=== PATIENT | female | born 1970 | race Caucasian/White ===

== ENCOUNTER 2022-12-07 20:45 | Inpatient (IN) | payer BC ==
[~2022-12-07] VITALS: Ht 180.3 cm; Wt 123.0 kg
[2022-12-07 21:36] LABS: ALANINE AMINOTRANSFERASE 29 U/L (12-78); ALBUMIN 2.7 G/DL (3.4-5.0); ALBUMIN/GLOBULIN RATIO 0.7 (1.1-1.5); ALKALINE PHOSPHATASE 336 IU/L (46-116); ANION GAP 6 (8-16); ASPARTATE AMINO TRANSFERASE 52 U/L (10-37); BASOPHILS % (AUTO) 0.3 % (0-1); BILIRUBIN,TOTAL 2.4 MG/DL (0.1-1.0); BLOOD UREA NITROGEN 2 MG/DL (7-18); BUN/CREATININE RATIO 2.6 (10.0-20.0); CALCIUM 8.5 MG/DL (8.5-10.1); CHLORIDE 99 MMOL/L (99-107); CREATININE 0.78 MG/DL (0.40-0.90); EOSINOPHILS # (AUTO) 0.1 X10'3 (0-0.9); EOSINOPHILS % (AUTO) 1.2 % (0-6); GLUCOSE 104 MG/DL (70-104); LYMPHOCYTES # (AUTO) 1.3 X10'3 (1.1-4.8); LYMPHOCYTES % (AUTO) 17.7 % (21-51); MEAN CORPUSCULAR HEMOGLOBIN 22.1 PG (27.0-31.0); MEAN CORPUSCULAR HGB CONC 29.2 g/dL (33.0-36.5); MEAN CORPUSCULAR VOLUME 75.8 FL (78-98); MEAN PLATELET VOLUME 7.5 FL (7.4-10.4); MONOCYTES # (AUTO) 0.5 X10'3 (0-0.9); MONOCYTES % (AUTO) 6.6 % (2-12); NEUTROPHILS # (AUTO) 5.3 X10'3 (1.8-7.7); NEUTROPHILS % (AUTO) 74.2 % (42-75); PLATELET COUNT 158 X10'3 (140-440); RED BLOOD COUNT 2.49 X10'6 (4.20-5.60); RED CELL DISTRIBUTION WIDTH 21.1 % (11.5-14.5); SODIUM 131 MMOL/L (135-145); TOTAL CARBON DIOXIDE 26.2 MMOL/L (24-32); TOTAL PROTEIN 6.7 G/DL (6.4-8.2); WHITE BLOOD COUNT 7.1 X10'3 (4.5-11.0); eCRCL 94 ML/MIN; eGFR 78 ML/MIN
[2022-12-07 21:41] LABS: LIPASE 43 U/L (16-77)
[2022-12-07 21:44] LABS: HEMATOCRIT 18.9 % (35.0-45.0); HEMOGLOBIN 5.5 g/dl (12.0-16.0); POTASSIUM 2.9 MMOL/L (3.5-5.1)
[2022-12-07] MEDS ORDERED: pantoprazole 40mg IV 80 MG in normal saline 100ml IV soln 100 ML IV ONE (21:45)
[2022-12-07 22:10] LABS: APTT 26 SECONDS (22-32); INR 1.1 INR
[2022-12-07 22:14] LABS: ANISOCYTOSIS 3+; HYPOCHROMASIA 2+; MICROCYTOSIS 1+; PLATELET ESTIMATE NORMAL; POLYCHROMASIA 1+
[2022-12-07 22:15] LABS: ELLIPTOCYTES FEW; STOMATOCYTES 1+
[2022-12-07] MEDS: diatr meglu/diatrizoate 30ml oral sol.-(3 dose) bottle PO SCH ×3 (22:25→23:55)
[2022-12-07] MEDS ORDERED: LORazepam 2 mg/ml vial IV ONE (22:25)
[2022-12-07] MEDS ORDERED: IOHEXOL 12MG/ML oral solution 500 ML BOTTLE PO ONE (22:25)
[2022-12-07 22:38] LABS: ETHANOL < 10 MG/DL (<10)
[2022-12-07] MEDS: pantoprazole 40MG/NS 100ML BAG 100 ML IV SCH (22:48)
[2022-12-07] MEDS: morphine 2 MG/ML inj. syringe IV PRN (22:55)
[2022-12-07 22:58] LABS: ABSOLUTE RETICS # 109500 /CUMM (23000-93000); RETICULOCYTE % (AUTO) 4.4 % (0.5-1.5)
[2022-12-07] MEDS ORDERED: iohexol 300mg/ml 100ml inj. ONE (23:07)
[2022-12-07 23:26] LABS: URINE HCG NEGATIVE (NEG)
[2022-12-07 23:26] LABS: OCCULT BLOOD STOOL NEGATIVE (Neg)
[2022-12-07 23:37] VITALS: BP 107/58; PULSE 76; RESP 20; TEMP 97.9
[2022-12-07 23:42] LABS: COLOR,URINE ORANGE (Yellow); UA COLLECTION TYPE VOIDED
[2022-12-07 23:47] VITALS: BP 114/65; PULSE 71; RESP 15; TEMP 97.8
[2022-12-07 23:47] LABS: BACTERIA,URINE 3+ /HPF (Neg); SQUAMOUS EPITHELIAL CELL,UR FEW /LPF (FEW); WBC,URINE 50-100 /HPF (0-4)
[2022-12-07 23:48] LABS: FINE GRANULAR CAST 0-3 /LPF (NEGATIVE); MUCUS STRANDS MODERATE /LPF (Neg); TRANSITIONAL EPI CELLS,URINE FEW /HPF
[2022-12-07 23:55] VITALS: BP 103/41; PULSE 75; RESP 18; TEMP 97.9
[2022-12-08] VITALS (14 sets, daily range): BP systolic 104–128; BP diastolic 43–115; PULSE 67–79; RESP 12–21; TEMP 97.7–99.4; O2SAT 97
[2022-12-08] MEDS ORDERED: piperacillin/tazo 3.375gm/50ml 50 ML IV ONE (00:35)
[2022-12-08] MEDS ORDERED: CefTRIAXone 2gm/D5W 50ml BAG 50 ML IV ONE (00:35)
[2022-12-08] MEDS: pantoprazole 40MG/NS 100ML BAG 100 ML IV SCH (00:54)
[2022-12-08] MEDS: normal saline 1000ml 1,000 ML IV SCH ×2 (01:00→21:05)
[2022-12-08] MEDS ORDERED: acetaminophen 325mg tablet PO PRN (01:00)
[2022-12-08] MEDS ORDERED: potassium Cl 20 mEq SR tablet PO PRN (01:00)
[2022-12-08] MEDS ORDERED: potassium Cl 40MEQ/1/2NS 520ml 520 ML IV PRN (01:00)
[2022-12-08] MEDS ORDERED: magnesium Cl slow-release 64mg tablet PO PRN (01:00)
[2022-12-08] MEDS ORDERED: magnesium 4gm in 100ml NS 100 ML IV PRN (01:00)
[2022-12-08] MEDS ORDERED: magnesium 2GM in 50ml NS 50 ML IV PRN (01:00)
[2022-12-08] MEDS: morphine 2 MG/ML inj. syringe IV PRN ×9 (01:04→21:25)
--- NOTE | 2022-12-08 01:04 | NUR ---
pt requested pain medication. per dr ramos, give 2mg iv morphine.
[2022-12-08] MEDS: potassium Cl 20 mEq SR tablet PO PRN ×3 (03:28→22:34)
[2022-12-08] MEDS: ondansetron/PF 4mg/2ml inj IV PRN (07:21)
[2022-12-08] MEDS: pantoprazole 40mg Tablet.DR PO SCH (07:23)
[2022-12-08] MEDS ORDERED: heparin, porcine 5000 units/ml vial SQ SCH (08:00)
[2022-12-08 09:34] LABS: % IRON SATURATION 10 % (11-46); IRON 43 UG/DL (49-151); TOTAL IRON BINDING CAPACITY 426 UG/DL (259-388)
[2022-12-08] MEDS ORDERED: NO HOME MEDS (10:52)
[2022-12-08 12:09] LABS: BASOPHILS % (AUTO) 0.2 % (0-1); EOSINOPHILS # (AUTO) 0.1 X10'3 (0-0.9); EOSINOPHILS % (AUTO) 1.3 % (0-6); HEMATOCRIT 23.2 % (35.0-45.0); LYMPHOCYTES # (AUTO) 0.9 X10'3 (1.1-4.8); LYMPHOCYTES % (AUTO) 12.8 % (21-51); MEAN CORPUSCULAR HEMOGLOBIN 23.4 PG (27.0-31.0); MEAN CORPUSCULAR HGB CONC 29.6 g/dL (33.0-36.5); MEAN CORPUSCULAR VOLUME 78.9 FL (78-98); MEAN PLATELET VOLUME 7.8 FL (7.4-10.4); MONOCYTES # (AUTO) 0.4 X10'3 (0-0.9); MONOCYTES % (AUTO) 6.1 % (2-12); NEUTROPHILS # (AUTO) 5.5 X10'3 (1.8-7.7); NEUTROPHILS % (AUTO) 79.6 % (42-75); PLATELET COUNT 156 X10'3 (140-440); RED BLOOD COUNT 2.95 X10'6 (4.20-5.60); WHITE BLOOD COUNT 6.9 X10'3 (4.5-11.0)
[2022-12-08 12:23] LABS: HEMOGLOBIN 6.9 g/dl (12.0-16.0)
[2022-12-08 13:27] LABS: ANISOCYTOSIS 2+; MICROCYTOSIS 1+; PLATELET ESTIMATE NORMAL
[2022-12-08 13:28] LABS: STOMATOCYTES 1+
[2022-12-08] MEDS ORDERED: ACET-1131 PO (16:42)
[2022-12-08] MEDS ORDERED: ACET-864 PO (16:42)
[2022-12-08] MEDS ORDERED: IBUP1TAB11 PO (16:43)
[2022-12-08] MEDS ORDERED: [UNRECOGNIZED DRUG - REMARK] PO (16:46)
[2022-12-08] MEDS ORDERED: OTC LAXATIVE PO (16:47)
--- NOTE | 2022-12-08 17:00 | NUR ---
pt was moved from ER room 9 to 4011 on hospital bed, received report from Wilson ALVARADO. Pt is receiving 3rd unit of PRBC. IV to bilateral ACs are patent and clear, no s/s of infiltration. Pt c/o mid abd pain 9-10, +nausea, no vomiting, resp even and unlabored, skin p/w/d.
--- NOTE | 2022-12-08 17:42 | NUR ---
unit of PRBC has finished infusing
--- NOTE | 2022-12-08 18:17 | NUR ---
report given to Paty Ponce RN
--- NOTE | 2022-12-08 18:20 | NUR ---
Patient in room ORTHO 4011. I have received report from JENNY MANZANO and had the opportunity to ask questions and assume patient care.
[2022-12-08] MEDS: FERROUS SULFATE 142 MG TABLET.ER (45mg elemental) PO SCH (21:41)
[2022-12-08 23:23] LABS: HEMATOCRIT 26.5 % (35.0-45.0); HEMOGLOBIN 8.1 g/dl (12.0-16.0); MEAN CORPUSCULAR HEMOGLOBIN 24.5 PG (27.0-31.0); MEAN CORPUSCULAR HGB CONC 30.7 g/dL (33.0-36.5); MEAN CORPUSCULAR VOLUME 79.7 FL (78-98); MEAN PLATELET VOLUME 7.5 FL (7.4-10.4); PLATELET COUNT 162 X10'3 (140-440); RED BLOOD COUNT 3.32 X10'6 (4.20-5.60); RED CELL DISTRIBUTION WIDTH 20.6 % (11.5-14.5); WHITE BLOOD COUNT 7.5 X10'3 (4.5-11.0)
[2022-12-09] MEDS: CefTRIAXone 2gm/D5W 50ml BAG 50 ML IV SCH ×2 (00:12→23:54)
[2022-12-09] MEDS: morphine 2 MG/ML inj. syringe IV PRN ×5 (02:02→14:36)
[2022-12-09 06:00] VITALS: BP 134/74; PULSE 70; RESP 16; TEMP 97.8; O2SAT 95
[2022-12-09 06:11] LABS: BASOPHILS % (AUTO) 0.3 % (0-1); EOSINOPHILS # (AUTO) 0.1 X10'3 (0-0.9); EOSINOPHILS % (AUTO) 1.1 % (0-6); HEMATOCRIT 26.5 % (35.0-45.0); LYMPHOCYTES # (AUTO) 0.6 X10'3 (1.1-4.8); LYMPHOCYTES % (AUTO) 6.8 % (21-51); MEAN CORPUSCULAR HEMOGLOBIN 24.6 PG (27.0-31.0); MEAN CORPUSCULAR HGB CONC 30.2 g/dL (33.0-36.5); MEAN CORPUSCULAR VOLUME 81.5 FL (78-98); MEAN PLATELET VOLUME 7.8 FL (7.4-10.4); MONOCYTES # (AUTO) 0.8 X10'3 (0-0.9); MONOCYTES % (AUTO) 9.9 % (2-12); NEUTROPHILS # (AUTO) 6.8 X10'3 (1.8-7.7); NEUTROPHILS % (AUTO) 81.9 % (42-75); PLATELET COUNT 170 X10'3 (140-440); RED BLOOD COUNT 3.26 X10'6 (4.20-5.60); RED CELL DISTRIBUTION WIDTH 20.4 % (11.5-14.5); WHITE BLOOD COUNT 8.3 X10'3 (4.5-11.0)
[2022-12-09 06:27] LABS: ALANINE AMINOTRANSFERASE 23 U/L (12-78); ALBUMIN 2.6 G/DL (3.4-5.0); ALBUMIN/GLOBULIN RATIO 0.6 (1.1-1.5); ALKALINE PHOSPHATASE 280 IU/L (46-116); ANION GAP 7 (8-16); ASPARTATE AMINO TRANSFERASE 40 U/L (10-37); BILIRUBIN,TOTAL 2.5 MG/DL (0.1-1.0); BLOOD UREA NITROGEN 2 MG/DL (7-18); BUN/CREATININE RATIO 2.8 (10.0-20.0); CALCIUM 8.5 MG/DL (8.5-10.1); CHLORIDE 103 MMOL/L (99-107); CREATININE 0.72 MG/DL (0.40-0.90); GLUCOSE 100 MG/DL (70-104); POTASSIUM 4.3 MMOL/L (3.5-5.1); SODIUM 134 MMOL/L (135-145); TOTAL CARBON DIOXIDE 24.5 MMOL/L (24-32); TOTAL PROTEIN 6.8 G/DL (6.4-8.2); eCRCL 102 ML/MIN; eGFR 85 ML/MIN
--- NOTE | 2022-12-09 06:38 | NUR ---
Problems reprioritized. Patient report given, questions answered & plan of care reviewed with JENNY PICKARD.
--- NOTE | 2022-12-09 06:50 | NUR ---
Patient in room ORTHO 4011. I have received report from Zahida ALVARADO and had the opportunity to ask questions and assume patient care.
[2022-12-09 07:02] LABS: ANISOCYTOSIS 3+; HYPOCHROMASIA 1+; MICROCYTOSIS 1+; PLATELET ESTIMATE NORMAL
[2022-12-09 07:03] LABS: POIKILOCYTOSIS FEW; STOMATOCYTES 1+
[2022-12-09 07:25] VITALS: BP 134/74; PULSE 70; RESP 16; TEMP 97.8; O2SAT 95
[2022-12-09] MEDS: pantoprazole 40mg Tablet.DR PO SCH (07:37)
[2022-12-09] MEDS: FERROUS SULFATE 142 MG TABLET.ER (45mg elemental) PO SCH ×2 (08:00→20:00)
[2022-12-09 11:00] VITALS: BP 123/47; PULSE 72; RESP 22; TEMP 97.6; O2SAT 95
[2022-12-09] MEDS ORDERED: sincalide inj 2.5 MCG in normal saline 100ml IV soln 100 ML IV ONE (12:35)
[2022-12-09] MEDS: HYDROmorphone 1 mg/ml syringe IV PRN ×2 (17:34→21:50)
[2022-12-09] MEDS: ondansetron/PF 4mg/2ml inj IV PRN (17:34)
[2022-12-09] MEDS: normal saline 1000ml 1,000 ML IV SCH (17:42)
--- NOTE | 2022-12-09 18:48 | NUR ---
Patient requesting pain relief q2hrs. dr story paged, meds addressed. Vomited 200mls brownish emesis. Zofran given. will continue to monitor
[2022-12-09 19:00] VITALS: BP 123/60; PULSE 92; RESP 19; TEMP 97.7; O2SAT 99
[2022-12-09 22:00] VITALS: BP 138/66; PULSE 112; RESP 18; TEMP 98; O2SAT 93
[2022-12-10] VITALS (12 sets, daily range): BP systolic 114–168; BP diastolic 59–73; PULSE 78–101; RESP 12–20; TEMP 98.4; O2SAT 93–100
--- NOTE | 2022-12-10 00:50 | NUR ---
pATIENT SEEN BY dr Ceja, AWARE OF BROWNISH EMESIS. Stated to make person NPO and that she would be operated on in am. 12/10/22. Patient resting at this time. No more episodes of vomiting
[2022-12-10] MEDS: ondansetron/PF 4mg/2ml inj IV PRN (05:13)
--- NOTE | 2022-12-10 05:17 | NUR ---
vomited 100mls brownish emesis given zofran, will continue to monitor
[2022-12-10 05:20] LABS: BASOPHILS % (AUTO) 0.3 % (0-1); EOSINOPHILS % (AUTO) 0.1 % (0-6); HEMATOCRIT 27.1 % (35.0-45.0); HEMOGLOBIN 8.2 g/dl (12.0-16.0); LYMPHOCYTES # (AUTO) 0.4 X10'3 (1.1-4.8); LYMPHOCYTES % (AUTO) 4.9 % (21-51); MEAN CORPUSCULAR HEMOGLOBIN 24.6 PG (27.0-31.0); MEAN CORPUSCULAR HGB CONC 30.2 g/dL (33.0-36.5); MEAN CORPUSCULAR VOLUME 81.3 FL (78-98); MEAN PLATELET VOLUME 7.4 FL (7.4-10.4); MONOCYTES # (AUTO) 1.1 X10'3 (0-0.9); MONOCYTES % (AUTO) 12.5 % (2-12); NEUTROPHILS # (AUTO) 7.4 X10'3 (1.8-7.7); NEUTROPHILS % (AUTO) 82.2 % (42-75); PLATELET COUNT 183 X10'3 (140-440); RED BLOOD COUNT 3.34 X10'6 (4.20-5.60); RED CELL DISTRIBUTION WIDTH 20.6 % (11.5-14.5)
[2022-12-10 05:33] LABS: ALANINE AMINOTRANSFERASE 30 U/L (12-78); ALBUMIN 2.8 G/DL (3.4-5.0); ALBUMIN/GLOBULIN RATIO 0.6 (1.1-1.5); ALKALINE PHOSPHATASE 300 IU/L (46-116); ANION GAP 8 (8-16); ASPARTATE AMINO TRANSFERASE 78 U/L (10-37); BILIRUBIN,TOTAL 3.6 MG/DL (0.1-1.0); BLOOD UREA NITROGEN 2 MG/DL (7-18); BUN/CREATININE RATIO 2.7 (10.0-20.0); CALCIUM 8.8 MG/DL (8.5-10.1); CHLORIDE 100 MMOL/L (99-107); CREATININE 0.73 MG/DL (0.40-0.90); GLUCOSE 140 MG/DL (70-104); POTASSIUM 3.5 MMOL/L (3.5-5.1); SODIUM 134 MMOL/L (135-145); TOTAL CARBON DIOXIDE 26.1 MMOL/L (24-32); TOTAL PROTEIN 7.2 G/DL (6.4-8.2); eCRCL 101 ML/MIN; eGFR 84 ML/MIN
--- NOTE | 2022-12-10 06:30 | NUR ---
Problems reprioritized. Patient report given, questions answered & plan of care reviewed with Keke ALVARADO.
[2022-12-10] MEDS: pantoprazole 40mg Tablet.DR PO SCH (07:30)
[2022-12-10] MEDS: FERROUS SULFATE 142 MG TABLET.ER (45mg elemental) PO SCH ×2 (08:00→22:58)
[2022-12-10 09:27] LABS: ANISOCYTOSIS 3+; HYPOCHROMASIA 1+; PLATELET ESTIMATE NORMAL; POLYCHROMASIA FEW; STOMATOCYTES 1+; TEAR DROP CELLS 1+
[2022-12-10] MEDS: HYDROmorphone 1 mg/ml syringe IV PRN ×2 (10:12→13:40)
[2022-12-10] MEDS: normal saline 1000ml 1,000 ML IV SCH (13:00)
[2022-12-10] MEDS ORDERED: proCHLORperazine 10 MG/2 ml inj IV PRN (17:25)
[2022-12-10] MEDS ORDERED: hydrALAZINE 20mg/ml inj. IV PRN (17:25)
[2022-12-10] MEDS ORDERED: ringers solution, lacted 1,000 ML IV SCH (17:25)
[2022-12-10] MEDS ORDERED: meperidine/PF 25mg/ml syringe IV PRN ×3 (17:25)
[2022-12-10] MEDS ORDERED: labetalol 20mg/4ml (5mg/ml) syringe IV PRN (17:25)
[2022-12-10] MEDS ORDERED: acetaminophen 1,000mg/100ml IV 100 ML IV PRN (17:25)
[2022-12-10] MEDS ORDERED: morphine 2 MG/ML inj. syringe IV PRN ×2 (17:25→21:00)
[2022-12-10] MEDS ORDERED: ondansetron/PF 4mg/2ml inj IV PRN ×2 (17:25→21:00)
[2022-12-10] MEDS ORDERED: morphine 4 MG/ML inj SYRINge IV PRN ×2 (17:25→21:00)
[2022-12-10] MEDS ORDERED: midazolam 1 mg/ML 2ml injection ONE (17:34)
[2022-12-10] MEDS ORDERED: fentaNYL /PF 50mcg/ml 5ml ampule ONE (17:35)
[2022-12-10] MEDS ORDERED: ceFAZolin 1000mg inj ONE ×3 (18:04)
[2022-12-10] MEDS ORDERED: rocuronium 10mg/ml inj IV ONE ×2 (18:04→18:18)
[2022-12-10] MEDS ORDERED: LIDOcaine 2% (20mg/ml) 5ml vial ONE (18:04)
[2022-12-10] MEDS ORDERED: propofol inj 20 ML IV ONE (18:04)
[2022-12-10] MEDS ORDERED: ondansetron/PF 4mg/2ml inj ONE (18:19)
[2022-12-10] MEDS ORDERED: dexamethasone sod phosphate 4mg/ml inj. ONE (18:19)
[2022-12-10] MEDS ORDERED: fentaNYL/PF 50MCG/1 ML 2ML syringe IV PRN (19:55)
[2022-12-10] MEDS ORDERED: midazolam 1 mg/ML 2ml injection IV PRN (19:55)
[2022-12-10] MEDS ORDERED: potassium Cl 20mEq in D5-NS 1,000 ML IV SCH (21:00)
[2022-12-10] MEDS ORDERED: metoclopramide 5 mg/ml inj IV PRN (21:00)
[2022-12-10] MEDS ORDERED: albuterol 2.5 MG/3 ML nebule NEB PRN (21:00)
--- NOTE | 2022-12-10 21:24 | NUR ---
Received from OR via ICU BED , accompanied by Anesthesiologist PRESLEY and report given by Anesthesiolgist. PATIENT WITH TRIPLE LUMEN CENTRAL LINE IN PLACE TO LEFT NECK. INTUBATED AND IS APPROX 21 AT THE LIPS. SCDS ON. ART LINE IN LEFT WRIST WELL A 20G PIV IN RIGHT DORSUM OF THE HAND. PATIENTWITH ABDOMINAL BINDERS X2 AND ISLAND DRESSINGS THAT ARE CDI. LEXI DRAIN PRESENT TO LEFT ABDOMEN SEROSANGUENOUS DRAINAGE PRESENT. REINOSO CATHETER PRESENT WITH CLEAR YELLOW URINE PRESENT. Addendum: 12/10/22 at 2200 by Roxanne Ramírez RN Amended: Links added.
[2022-12-10] MEDS: propofol 1000mg/100ml bottle 100 ML IV SCH ×2 (21:36→22:53)
[2022-12-10 22:07] LABS: BASOPHILS % (AUTO) 0.4 % (0-1); EOSINOPHILS % (AUTO) 0 % (0-6); HEMATOCRIT 29.2 % (35.0-45.0); LYMPHOCYTES # (AUTO) 0.3 X10'3 (1.1-4.8); LYMPHOCYTES % (AUTO) 4.1 % (21-51); MEAN CORPUSCULAR HEMOGLOBIN 25.6 PG (27.0-31.0); MEAN CORPUSCULAR HGB CONC 30.7 g/dL (33.0-36.5); MEAN CORPUSCULAR VOLUME 83.5 FL (78-98); MEAN PLATELET VOLUME 7.2 FL (7.4-10.4); MONOCYTES % (AUTO) 14.7 % (2-12); NEUTROPHILS # (AUTO) 5.7 X10'3 (1.8-7.7); NEUTROPHILS % (AUTO) 80.8 % (42-75); PLATELET COUNT 174 X10'3 (140-440); RED CELL DISTRIBUTION WIDTH 21.4 % (11.5-14.5); WHITE BLOOD COUNT 7.1 X10'3 (4.5-11.0)
--- NOTE | 2022-12-10 22:14 | NUR ---
CARE TURNED OVER TO RN AT BEDSIDE FOLLOWING BEDSIDE REPORT. JENNY PATIÑO CARING FOR PATIENT AT THIS TIME NOW AND HAS ASSUMED CARE. ALL LINES SECURE AND DRESSINGS HAVE ONLY SLIGHTLY CHANGED SINCE ARRIVAL FROM THE OR. ALL QUESTIONS ANSWERED AND CARE ASSUMED. VSS Addendum: 12/10/22 at 2217 by Roxanne Ramírez RN Amended: Links added.
[2022-12-10] MEDS: piperacillin/tazo 3.375gm/50ml 50 ML IV SCH (22:23)
--- NOTE | 2022-12-10 22:50 | NUR ---
2220 initiated care after report from candi - pt wildly undersedated and adjustments made for pt comfort with fent and prop
[2022-12-10 23:10] LABS: PLATELET ESTIMATE NORMAL
[2022-12-10 23:11] LABS: ANISOCYTOSIS 3+; ELLIPTOCYTES 1+
[2022-12-10 23:45] LABS: ABG BASE EXCESS -2.8 mmol/L (-2.0-2.0); ABG HCO3 21.9 mmol/L (22.0-26.0); ABG OXYGEN SATURATION 99.7 % (94-97); ABG PCO2 (T) 38.5 mmHg (32.0-45.0); ABG PH (T) 7.375 (7.350-7.450); ABG PO2 (T) 348.8 mmHg (75.0-100.0); FCOHb 1.2 % (0.0-3.9); FHHb 0.3 % (0.0-5.0); FO2Hb 98.5 % (94-97); MODE VENT - SIMV; PATIENT TEMPERATURE 37.5; RESPIRATORY RATE 12 b/min; TIDAL VOLUME 725 mL; TOTAL HEMOGLOBIN 10.1 G/dl (12.0-16.0)
[2022-12-11] VITALS (36 sets, daily range): BP systolic 88–138; BP diastolic 45–74; PULSE 74–125; RESP 12–21; O2SAT 80–100
[2022-12-11] MEDS ORDERED: cefoxitin sod inj 2,000 MG in normal saline 100ml IV soln 100 ML IV SCH ×2
[2022-12-11] MEDS ORDERED: ceFAZolin inj. 1,000 MG in dextrose 5%-water 50ml 50 ML IV SCH ×2
[2022-12-11] MEDS: propofol 1000mg/100ml bottle 100 ML IV SCH ×5 (01:31→14:11)
[2022-12-11 01:56] LABS: BASOPHILS % (AUTO) 0.1 % (0-1); EOSINOPHILS % (AUTO) 0 % (0-6); HEMATOCRIT 27.1 % (35.0-45.0); HEMOGLOBIN 8.4 g/dl (12.0-16.0); LYMPHOCYTES # (AUTO) 0.4 X10'3 (1.1-4.8); LYMPHOCYTES % (AUTO) 5.2 % (21-51); MEAN CORPUSCULAR HEMOGLOBIN 25.9 PG (27.0-31.0); MEAN CORPUSCULAR HGB CONC 30.9 g/dL (33.0-36.5); MEAN CORPUSCULAR VOLUME 83.8 FL (78-98); MEAN PLATELET VOLUME 7.8 FL (7.4-10.4); MONOCYTES # (AUTO) 0.9 X10'3 (0-0.9); MONOCYTES % (AUTO) 12.2 % (2-12); NEUTROPHILS # (AUTO) 6.3 X10'3 (1.8-7.7); NEUTROPHILS % (AUTO) 82.5 % (42-75); PLATELET COUNT 165 X10'3 (140-440); RED BLOOD COUNT 3.23 X10'6 (4.20-5.60); RED CELL DISTRIBUTION WIDTH 21.5 % (11.5-14.5); WHITE BLOOD COUNT 7.6 X10'3 (4.5-11.0)
[2022-12-11 02:01] LABS: ALANINE AMINOTRANSFERASE 25 U/L (12-78); ALBUMIN 1.9 G/DL (3.4-5.0); ALKALINE PHOSPHATASE 176 IU/L (46-116); ANION GAP 9 (8-16); ASPARTATE AMINO TRANSFERASE 78 U/L (10-37); BILIRUBIN,TOTAL 5.3 MG/DL (0.1-1.0); BLOOD UREA NITROGEN 2 MG/DL (7-18); BUN/CREATININE RATIO 3.1 (10.0-20.0); CALCIUM 7.6 MG/DL (8.5-10.1); CHLORIDE 104 MMOL/L (99-107); CREATININE 0.64 MG/DL (0.40-0.90); GLUCOSE 134 MG/DL (70-104); MAGNESIUM 1.8 MG/DL (1.5-2.4); POTASSIUM 3.2 MMOL/L (3.5-5.1); SODIUM 137 MMOL/L (135-145); TOTAL CARBON DIOXIDE 24.5 MMOL/L (24-32); eCRCL 115 ML/MIN; eGFR > 90 ML/MIN
[2022-12-11 02:04] LABS: ALBUMIN/GLOBULIN RATIO 0.6 (1.1-1.5); TRIGLYCERIDES 91 MG/DL (20-135)
[2022-12-11 02:53] LABS: ABG BASE EXCESS -2.2 mmol/L (-2.0-2.0); ABG HCO3 21.7 mmol/L (22.0-26.0); ABG OXYGEN SATURATION 96.6 % (94-97); ABG PCO2 (T) 33.6 mmHg (32.0-45.0); ABG PH (T) 7.428 (7.350-7.450); ABG PO2 (T) 79.2 mmHg (75.0-100.0); FCOHb 1.1 % (0.0-3.9); FHHb 3.4 % (0.0-5.0); FMetHb 0.3 % (0.0-1.5); FO2Hb 95.2 % (94-97); MODE VENT - SIMV; PATIENT TEMPERATURE 37.1; PEEP 5 cm H2O; RESPIRATORY RATE 12 b/min; TIDAL VOLUME 750 mL
[2022-12-11] MEDS: FENTANYL-0.9 % NACL/PF 100 ML IV PRN ×4 (03:24→18:48)
[2022-12-11] MEDS: piperacillin/tazo 3.375gm/50ml 50 ML IV SCH ×3 (05:27→22:16)
--- NOTE | 2022-12-11 06:55 | NUR ---
Patient in room ICU 2044. I have received report from Karen ALVARADO and had the opportunity to ask questions and assume patient care.
[2022-12-11] MEDS: FERROUS SULFATE 142 MG TABLET.ER (45mg elemental) PO SCH ×2 (06:56→19:21)
[2022-12-11] MEDS: pantoprazole 40mg Tablet.DR PO SCH (06:56)
[2022-12-11] MEDS: gabapentin 300mg capsule PO SCH ×2 (06:56→19:21)
--- NOTE | 2022-12-11 10:54 | NUR ---
called Dr. Wright updated on current status, asked what the plan is for today, he stated to keep her intubated for today, stated that it was a big surgery and that the area is fragile
[2022-12-11] MEDS: potassium Cl 20mEq in D5-NS 1,000 ML IV SCH ×3 (11:05→21:19)
[2022-12-11] MEDS: pantoprazole 40MG/NS 100ML BAG 100 ML IV SCH (11:23)
[2022-12-11] MEDS: heparin, porcine 5000 units/ml vial SQ SCH ×2 (11:23→16:08)
--- NOTE | 2022-12-11 14:44 | NUR ---
F/u 12/11: Per MD during CCR, plan is to wean off sedation and possibly extubate today therefore holding off on TF for now. Will continue to monitor closely and make recommendations as appropriate. Addendum: 12/11/22 at [address] Amended: Links added.
[2022-12-11] MEDS ORDERED: potassium Cl 20 mEq SR tablet PO PRN (16:25)
[2022-12-11] MEDS ORDERED: potassium Cl 40MEQ/1/2NS 520ml 520 ML IV PRN (16:25)
[2022-12-11] MEDS ORDERED: magnesium Cl slow-release 64mg tablet PO PRN (16:25)
[2022-12-11] MEDS ORDERED: midazolam 100mg in NS 100ml 100 ML IV PRN (16:25)
[2022-12-11] MEDS ORDERED: magnesium 4gm in 100ml NS 100 ML IV PRN (16:25)
[2022-12-11] MEDS ORDERED: magnesium 2GM in 50ml NS 50 ML IV PRN (16:25)
[2022-12-11] MEDS: mineral oil/petrolatum ophthal oint EACHEYE SCH (19:22)
--- NOTE | 2022-12-11 21:14 | NUR ---
dr chen in - aware of hr in the 120's and low UOP - ofirmev and albumin ordered
[2022-12-11] MEDS ORDERED: acetaminophen 1,000mg/100ml IV 100 ML IV PRN (21:15)
[2022-12-11] MEDS ORDERED: albumin (Human) 5% 250ml 250 ML IV ONE ×2 (21:15→21:16)
[2022-12-11] MEDS ORDERED: albumin (Human) 5% 250ml 500 ML IV ONE (21:16)
[2022-12-12] VITALS (32 sets, daily range): BP systolic 90–130; BP diastolic 47–79; PULSE 70–111; RESP 8–30; O2SAT 94–99
[2022-12-12] MEDS: heparin, porcine 5000 units/ml vial SQ SCH ×4 (00:44→23:49)
[2022-12-12] MEDS: mineral oil/petrolatum ophthal oint EACHEYE SCH ×3 (02:00→14:00)
[2022-12-12 02:09] LABS: ABG BASE EXCESS -2.5 mmol/L (-2.0-2.0); ABG HCO3 23.6 mmol/L (22.0-26.0); ABG OXYGEN SATURATION 97.1 % (94-97); ABG PCO2 (T) 46.5 mmHg (32.0-45.0); ABG PH (T) 7.322 (7.350-7.450); ABG PO2 (T) 91.3 mmHg (75.0-100.0); FCOHb 1.2 % (0.0-3.9); FHHb 2.9 % (0.0-5.0); FMetHb 0.3 % (0.0-1.5); FO2Hb 95.6 % (94-97); MODE ac/prvc; PATIENT TEMPERATURE 36.8; PEEP 5 cm H2O; RESPIRATORY RATE 16 b/min; TIDAL VOLUME 375 mL; TOTAL HEMOGLOBIN 8.4 G/dl (12.0-16.0)
[2022-12-12 02:36] LABS: BASOPHILS # (AUTO) 0.1 X10'3 (0-0.2); EOSINOPHILS # (AUTO) 0.1 X10'3 (0-0.9); EOSINOPHILS % (AUTO) 2.4 % (0-6); HEMATOCRIT 24.1 % (35.0-45.0); HEMOGLOBIN 7.3 g/dl (12.0-16.0); LYMPHOCYTES # (AUTO) 0.8 X10'3 (1.1-4.8); LYMPHOCYTES % (AUTO) 13.2 % (21-51); MEAN CORPUSCULAR HEMOGLOBIN 25.8 PG (27.0-31.0); MEAN CORPUSCULAR HGB CONC 30.2 g/dL (33.0-36.5); MEAN CORPUSCULAR VOLUME 85.5 FL (78-98); MEAN PLATELET VOLUME 7.7 FL (7.4-10.4); MONOCYTES # (AUTO) 0.8 X10'3 (0-0.9); MONOCYTES % (AUTO) 13.4 % (2-12); NEUTROPHILS # (AUTO) 4.2 X10'3 (1.8-7.7); PLATELET COUNT 169 X10'3 (140-440); RED BLOOD COUNT 2.83 X10'6 (4.20-5.60)
[2022-12-12 02:51] LABS: ALANINE AMINOTRANSFERASE 18 U/L (12-78); ALBUMIN 1.9 G/DL (3.4-5.0); ALBUMIN/GLOBULIN RATIO 0.6 (1.1-1.5); ALKALINE PHOSPHATASE 138 IU/L (46-116); ANION GAP 9 (8-16); ASPARTATE AMINO TRANSFERASE 39 U/L (10-37); BILIRUBIN,TOTAL 3.1 MG/DL (0.1-1.0); BLOOD UREA NITROGEN 4 MG/DL (7-18); BUN/CREATININE RATIO 4.8 (10.0-20.0); CALCIUM 7.7 MG/DL (8.5-10.1); CHLORIDE 107 MMOL/L (99-107); CREATININE 0.84 MG/DL (0.40-0.90); GLUCOSE 126 MG/DL (70-104); MAGNESIUM 1.9 MG/DL (1.5-2.4); POTASSIUM 3.3 MMOL/L (3.5-5.1); SODIUM 142 MMOL/L (135-145); TOTAL CARBON DIOXIDE 26.3 MMOL/L (24-32); TOTAL PROTEIN 5.1 G/DL (6.4-8.2); eCRCL 88 ML/MIN; eGFR 71 ML/MIN
--- NOTE | 2022-12-12 03:20 | NUR ---
abd dressing change done - cleansed with chg wipes, island dressing re-applied and abd binder replaced
[2022-12-12 03:54] LABS: ANISOCYTOSIS 3+; ELLIPTOCYTES FEW; PLATELET ESTIMATE NORMAL; STOMATOCYTES FEW
[2022-12-12 03:55] LABS: HYPOCHROMASIA 1+
[2022-12-12] MEDS: potassium Cl 20mEq in D5-NS 1,000 ML IV SCH ×3 (04:31→23:49)
[2022-12-12] MEDS: potassium Cl 40MEQ/270ML bag 270 ML IV PRN (04:32)
[2022-12-12] MEDS: FENTANYL-0.9 % NACL/PF 100 ML IV PRN ×2 (04:32)
[2022-12-12] MEDS: piperacillin/tazo 3.375gm/50ml 50 ML IV SCH ×3 (05:24→22:08)
[2022-12-12] MEDS: FERROUS SULFATE 142 MG TABLET.ER (45mg elemental) PO SCH ×2 (08:00→20:00)
[2022-12-12] MEDS: gabapentin 300mg capsule PO SCH ×2 (08:00→20:00)
[2022-12-12] MEDS: pantoprazole 40MG/NS 100ML BAG 100 ML IV SCH (08:02)
--- NOTE | 2022-12-12 09:22 | NUR ---
sedation vacation since 824 follows commands, nods yes to pain. rr 10, tv 64
[2022-12-12] MEDS: normal saline 1000ml 1,000 ML IV SCH ×2 (13:22→22:56)
[2022-12-12] MEDS: thiamine 100mg/ml 2ml inj. IV SCH ×2 (13:23→20:17)
[2022-12-12] MEDS ORDERED: HYDROmorphone 1 mg/ml syringe IV PRN (14:20)
[2022-12-12] MEDS: folic acid 1mg/0.2ml inj IV SCH (14:23)
--- NOTE | 2022-12-12 14:26 | NUR ---
PRESSURE ULCER EDUCATION: DEFINITION: A pressure ulcer is an area of skin that breaks down when you stay in one position too long. The constant pressure against the skin reduces the blood flow to that area and the affected tissue dies. CAUSES: "Being bedridden or in a wheelchair "Fragile skin "Having a chronic condition, such as diabetes or vascular disease "Inability to move certain parts of your body without assistance "Older age "Incontinence of urine or stool SYMPTOMS: "A reddened area that DOES NOT turn white when pressed on - this can be the beginning of a pressure ulcer "A blister, deep sore or a crater - these can be advanced pressure ulcers FIRST AID: "Relieve the pressure on this area "Keep the area clean and dry "Call your primary doctor if you see any of the above symptoms "DO NOT massage the area "DO NOT use a donut shaped or ring shaped pillow- these actually interfere with the blood flow and cause complications PREVENTION: "Check for pressure ulcers everyday "Change position at least every two hours to relieve pressure "Use items that help relieve pressure- pillows, sheepskin, foam padding, and powders. "Keep skin clean and dry "Eat healthy well balanced meals "Exercise daily IF YOU SEE ANY OF THESE SYMPTOMS WHILE IN THE HOSPITAL - TELL YOUR NURSE IMMEDIATELY. IF YOU SEE ANY OF THESE SYMPTOMS WHILE AT HOME OR HAVE ANY QUESTIONS OR CONCERNS ABOUT PRESSURE ULCERS - CALL YOUR PRIMARY DOCTOR IMMEDIATELY. Addendum: 12/12/22 at 1426 by Collette Kay RN Amended: Links added.
[2022-12-12] MEDS: HYDROmorphone inj. 0.5 MG/0.5 ML DISP.SYRIN IV PRN ×2 (16:09→20:35)
--- NOTE | 2022-12-12 18:30 | NUR ---
Patient in room ICU 2044. I have received report from Nori ALVARADO and had the opportunity to ask questions and assume patient care.
[2022-12-13] VITALS (22 sets, daily range): BP systolic 91–138; BP diastolic 48–76; PULSE 82–111; RESP 11–21; TEMP 98.1–99.3; O2SAT 91–99
[2022-12-13 02:31] LABS: BASOPHILS % (AUTO) 0.6 % (0-1); EOSINOPHILS # (AUTO) 0.2 X10'3 (0-0.9); EOSINOPHILS % (AUTO) 3.3 % (0-6); HEMATOCRIT 24.7 % (35.0-45.0); HEMOGLOBIN 7.4 g/dl (12.0-16.0); LYMPHOCYTES # (AUTO) 0.8 X10'3 (1.1-4.8); MEAN CORPUSCULAR HEMOGLOBIN 25.8 PG (27.0-31.0); MEAN CORPUSCULAR HGB CONC 30.1 g/dL (33.0-36.5); MEAN CORPUSCULAR VOLUME 85.7 FL (78-98); MEAN PLATELET VOLUME 7.5 FL (7.4-10.4); MONOCYTES # (AUTO) 0.6 X10'3 (0-0.9); NEUTROPHILS # (AUTO) 3.6 X10'3 (1.8-7.7); NEUTROPHILS % (AUTO) 70.1 % (42-75); PLATELET COUNT 183 X10'3 (140-440); RED BLOOD COUNT 2.88 X10'6 (4.20-5.60); RED CELL DISTRIBUTION WIDTH 22.3 % (11.5-14.5); WHITE BLOOD COUNT 5.1 X10'3 (4.5-11.0)
[2022-12-13 02:45] LABS: ALANINE AMINOTRANSFERASE 20 U/L (12-78); ALBUMIN 1.8 G/DL (3.4-5.0); ALBUMIN/GLOBULIN RATIO 0.5 (1.1-1.5); ALKALINE PHOSPHATASE 153 IU/L (46-116); ANION GAP 3 (8-16); ASPARTATE AMINO TRANSFERASE 43 U/L (10-37); BILIRUBIN,TOTAL 2.6 MG/DL (0.1-1.0); BLOOD UREA NITROGEN 2 MG/DL (7-18); BUN/CREATININE RATIO 3.4 (10.0-20.0); CALCIUM 7.8 MG/DL (8.5-10.1); CHLORIDE 110 MMOL/L (99-107); CREATININE 0.59 MG/DL (0.40-0.90); GLUCOSE 90 MG/DL (70-104); POTASSIUM 3.4 MMOL/L (3.5-5.1); SODIUM 143 MMOL/L (135-145); TOTAL CARBON DIOXIDE 29.7 MMOL/L (24-32); TOTAL PROTEIN 5.3 G/DL (6.4-8.2); eCRCL 125 ML/MIN; eGFR > 90 ML/MIN
[2022-12-13] MEDS: piperacillin/tazo 3.375gm/50ml 50 ML IV SCH ×3 (05:34→22:57)
[2022-12-13] MEDS: potassium Cl 40MEQ/270ML bag 270 ML IV PRN (05:35)
[2022-12-13] MEDS: HYDROmorphone inj. 0.5 MG/0.5 ML DISP.SYRIN IV PRN ×7 (05:37→22:51)
--- NOTE | 2022-12-13 06:28 | NUR ---
Problems reprioritized. Patient report given, questions answered & plan of care reviewed with Nori ALVARADO.
[2022-12-13] MEDS: FERROUS SULFATE 142 MG TABLET.ER (45mg elemental) PO SCH ×2 (07:57→20:37)
[2022-12-13] MEDS: pantoprazole 40MG/NS 100ML BAG 100 ML IV SCH (08:00)
[2022-12-13] MEDS: thiamine 100mg/ml 2ml inj. IV SCH ×2 (08:36→20:49)
[2022-12-13] MEDS: folic acid 1mg/0.2ml inj IV SCH (08:36)
[2022-12-13] MEDS: heparin, porcine 5000 units/ml vial SQ SCH ×2 (08:36→16:06)
[2022-12-13] MEDS: normal saline 1000ml 1,000 ML IV SCH ×2 (10:42→22:28)
--- NOTE | 2022-12-13 11:42 | NUR ---
Initial: Pt presented with c/o abdominal pain and admit for incarcerated abdominal hernia, microcytic anemia, cholelithiasis, hypokalemia, and hyponatremia. Pt currently POD #3 s/p exploratory laparotomy, hernia repair, right colectomy, and cholecystectomy. Pt extubated 12/12 per EMR. Pt remains without a diet order at this time. Per RN surgeon states pt to remain NPO until she passes gas. LBM 12/08 per EMR, with no bowel care available. Per RN pt with very active bowel sounds. Pt currently day five with no nutrition so hopefully either diet will be able to be advanced soon or nutrition support will b implemented. Noted pt with h/o gastric bypass as well as EtOH use. Pt currently receiving routine Thiamine, Folic acid, and Ferrous Sulfate. D/w clinical pharmacist recommendation for routine MVM, Vitamin B12, and Calcium. Per clinical pharmacist there is a shortage of multivitamins so they are unable to be implemented. Will continue to follow closely and make recommendations as appropriate. Recommendations: 1) Advance to low fiber diet as medically indicated 2) Initiate nutrition support if prolonged NPO/insufficient diet order, currently day 5 NPO 3) Continue routine Thiamine, Folic acid, and Fe; initiate routine MVM, Vitamin B12, and Calcium d/t h/o EtOH and gastric bypass; MVI shortage per clinical pharmacist 4) Bowel care per surgeon 5) Weekly scaled weights Addendum: 12/13/22 at [address] Amended: Links added.
[2022-12-13] MEDS ORDERED: diphenhydrAMINE 50 mg/ml inj IV PRN (12:10)
--- NOTE | 2022-12-13 14:44 | NUR ---
Dr. Pickering by to round on patient, systems, labs and assessment reviewed new orders D/C central line NS at 80 mls/hr Clear liquid diet transfer any floor with tele
--- NOTE | 2022-12-13 15:51 | NUR ---
recd report from shun tracy icu
--- NOTE | 2022-12-13 16:56 | NUR ---
pt transferred from icu, vss
--- NOTE | 2022-12-13 16:59 | NUR ---
transferred to room 3011. report given to JENNY Mcintyre.
--- NOTE | 2022-12-13 18:28 | NUR ---
Problems reprioritized. Patient report given, questions answered & plan of care reviewed with atul tracy.
--- NOTE | 2022-12-13 22:10 | NUR ---
pt c/o pain and was given PRN dilaudid per orders. Pt also requested to have catheter removed. informed.
--- NOTE | 2022-12-13 22:31 | NUR ---
Nurse spoke with provider regarding pt request to have the antonio catheter removed. Provider Real gave order to remove Antonio catheter, if pt does not void in 6hrs to replace antonio catheter.
[2022-12-14] VITALS (9 sets, daily range): BP systolic 104–129; BP diastolic 48–60; PULSE 79–94; RESP 16–22; TEMP 97.8–99.9; O2SAT 91–99
[2022-12-14] MEDS: HYDROmorphone inj. 0.5 MG/0.5 ML DISP.SYRIN IV PRN ×9 (01:07→21:55)
[2022-12-14] MEDS: heparin, porcine 5000 units/ml vial SQ SCH ×3 (01:39→15:38)
[2022-12-14] MEDS: piperacillin/tazo 3.375gm/50ml 50 ML IV SCH ×3 (06:01→22:13)
--- NOTE | 2022-12-14 06:28 | NUR ---
Problems reprioritized. Patient report given, questions answered & plan of care reviewed with Dorota ALVARADO. Pt stable at shift change.
[2022-12-14] MEDS: FERROUS SULFATE 142 MG TABLET.ER (45mg elemental) PO SCH ×2 (07:20→20:08)
[2022-12-14] MEDS: thiamine 100mg/ml 2ml inj. IV SCH ×2 (07:20→22:02)
[2022-12-14] MEDS: folic acid 1mg/0.2ml inj IV SCH (07:30)
[2022-12-14] MEDS: pantoprazole 40MG/NS 100ML BAG 100 ML IV SCH (07:30)
[2022-12-14] MEDS: normal saline 1000ml 1,000 ML IV SCH ×2 (10:14→22:00)
[2022-12-14] MEDS: potassium Cl 20 mEq SR tablet PO PRN (20:08)
[2022-12-15] VITALS (8 sets, daily range): BP systolic 103–122; BP diastolic 40–68; PULSE 74–88; RESP 13–18; TEMP 98–99; O2SAT 91–98
[2022-12-15] MEDS: heparin, porcine 5000 units/ml vial SQ SCH ×3 (00:08→15:07)
[2022-12-15] MEDS: potassium Cl 20 mEq SR tablet PO PRN ×5 (00:08→20:25)
[2022-12-15] MEDS: normal saline 1000ml 1,000 ML IV SCH ×4 (00:50→23:36)
[2022-12-15] MEDS: HYDROmorphone inj. 0.5 MG/0.5 ML DISP.SYRIN IV PRN ×4 (01:05→12:32)
[2022-12-15] MEDS: piperacillin/tazo 3.375gm/50ml 50 ML IV SCH ×3 (05:58→23:36)
--- NOTE | 2022-12-15 06:30 | NUR ---
Patient in room PCU 3011. I have received report from Blanche DELACRUZ and Subhash DELACRUZ and had the opportunity to ask questions and assume patient care.
[2022-12-15 07:26] LABS: BASOPHILS % (AUTO) 0.7 % (0-1); EOSINOPHILS # (AUTO) 0.2 X10'3 (0-0.9); EOSINOPHILS % (AUTO) 3.2 % (0-6); HEMATOCRIT 30.2 % (35.0-45.0); HEMOGLOBIN 9.2 g/dl (12.0-16.0); LYMPHOCYTES # (AUTO) 1.1 X10'3 (1.1-4.8); LYMPHOCYTES % (AUTO) 16.5 % (21-51); MEAN CORPUSCULAR HEMOGLOBIN 25.9 PG (27.0-31.0); MEAN CORPUSCULAR HGB CONC 30.4 g/dL (33.0-36.5); MEAN CORPUSCULAR VOLUME 85.2 FL (78-98); MEAN PLATELET VOLUME 7.7 FL (7.4-10.4); MONOCYTES # (AUTO) 0.6 X10'3 (0-0.9); MONOCYTES % (AUTO) 8.7 % (2-12); NEUTROPHILS # (AUTO) 4.7 X10'3 (1.8-7.7); NEUTROPHILS % (AUTO) 70.9 % (42-75); PLATELET COUNT 238 X10'3 (140-440); RED BLOOD COUNT 3.54 X10'6 (4.20-5.60); RED CELL DISTRIBUTION WIDTH 22.6 % (11.5-14.5); WHITE BLOOD COUNT 6.7 X10'3 (4.5-11.0)
[2022-12-15 07:46] LABS: ALANINE AMINOTRANSFERASE 22 U/L (12-78); ALBUMIN/GLOBULIN RATIO 0.5 (1.1-1.5); ALKALINE PHOSPHATASE 190 IU/L (46-116); ANION GAP 6 (8-16); ASPARTATE AMINO TRANSFERASE 55 U/L (10-37); BILIRUBIN,TOTAL 2.4 MG/DL (0.1-1.0); BLOOD UREA NITROGEN 0 MG/DL (7-18); CALCIUM 8.2 MG/DL (8.5-10.1); CHLORIDE 103 MMOL/L (99-107); CREATININE 0.72 MG/DL (0.40-0.90); GLUCOSE 136 MG/DL (70-104); POTASSIUM 3.3 MMOL/L (3.5-5.1); SODIUM 137 MMOL/L (135-145); TOTAL CARBON DIOXIDE 28.4 MMOL/L (24-32); TOTAL PROTEIN 5.9 G/DL (6.4-8.2); eCRCL 102 ML/MIN; eGFR 85 ML/MIN
[2022-12-15] MEDS: pantoprazole 40MG/NS 100ML BAG 100 ML IV SCH (08:00)
[2022-12-15] MEDS: folic acid 1mg/0.2ml inj IV SCH (08:00)
[2022-12-15] MEDS: thiamine 100mg/ml 2ml inj. IV SCH (08:00)
[2022-12-15 08:09] LABS: ANISOCYTOSIS 3+; MICROCYTOSIS 1+; PLATELET ESTIMATE NORMAL; POIKILOCYTOSIS FEW; POLYCHROMASIA 1+
[2022-12-15] MEDS: FERROUS SULFATE 142 MG TABLET.ER (45mg elemental) PO SCH ×2 (08:27→20:25)
--- NOTE | 2022-12-15 11:08 | NUR ---
PAGER ID: [phone] MESSAGE: [id number] Battles Patient has orders for IV Protonix, Folic acid, and Thiamine. Patient is able to tolerate PO meds. Can those be changed to PO? Thank you Lisa DELACRUZ [phone]
--- NOTE | 2022-12-15 12:03 | NUR ---
Spoke with Dr Carvalho about patient being able to tolerate PO meds and changing Thiamine, folic acid, and protonix. Also spoke about patient's [place] orders being held. gave order to switch folic acid, thiamine, and Protonix to PO and resume [place] orders.
[2022-12-15] MEDS: HYDROcodone/acetaminophen 10/325mg tab PO PRN ×2 (15:07→20:24)
--- NOTE | 2022-12-15 16:00 | NUR ---
Patient was found to have her vape pen by PT. Patient hid it along the blanket. Charge nurse went in and spoke with patient about it. Patient agreed to have her son come get it.
--- NOTE | 2022-12-15 16:28 | NUR ---
Patient's Vape pen was released to patient's son. Son took vape home with him
--- NOTE | 2022-12-15 17:55 | NUR ---
Spoke with Dr Santana about patient's diet. gave order for regular diet.
--- NOTE | 2022-12-15 18:04 | NUR ---
Problems reprioritized. Patient report given, questions answered & plan of care reviewed with Blanche DELACRUZ and Subhash DELACRUZ.
[2022-12-15] MEDS: thiamine 100mg tablet PO SCH (20:25)
[2022-12-16] MEDS: heparin, porcine 5000 units/ml vial SQ SCH ×3 (00:58→16:00)
[2022-12-16 02:00] VITALS: BP 104/55; PULSE 84; RESP 19; TEMP 98.8; O2SAT 95
[2022-12-16] MEDS: HYDROcodone/acetaminophen 10/325mg tab PO PRN ×3 (05:09→13:22)
[2022-12-16] MEDS: piperacillin/tazo 3.375gm/50ml 50 ML IV SCH ×2 (05:48→14:21)
--- NOTE | 2022-12-16 06:22 | NUR ---
Patient in room PCU 3011. I have received report from Blanche EDLACRUZ and Subhash DELACRUZ and had the opportunity to ask questions and assume patient care.
--- NOTE | 2022-12-16 06:22 | NUR ---
Problems reprioritized. Patient report given to Lisa DELACRUZ questions answered & plan of care reviewed with .
[2022-12-16 07:00] VITALS: BP 106/52; PULSE 76; RESP 15; TEMP 98.6; O2SAT 95
--- NOTE | 2022-12-16 07:00 | NUR ---
This RN has reviewed and agrees w/the IMPLEMENTATION COORDINATOR's physical assessment of this patient.
[2022-12-16] MEDS ORDERED: pantoprazole 40mg Tablet.DR PO SCH (07:30)
[2022-12-16 07:44] LABS: EOSINOPHILS # (AUTO) 0.2 X10'3 (0-0.9); HEMOGLOBIN 8.2 g/dl (12.0-16.0); NEUTROPHILS # (AUTO) 4.6 X10'3 (1.8-7.7)
[2022-12-16 07:47] LABS: BASOPHILS % (AUTO) 0.7 % (0-1); EOSINOPHILS % (AUTO) 3.6 % (0-6); HEMATOCRIT 26.4 % (35.0-45.0); LYMPHOCYTES # (AUTO) 0.9 X10'3 (1.1-4.8); LYMPHOCYTES % (AUTO) 13.7 % (21-51); MEAN CORPUSCULAR HEMOGLOBIN 26.5 PG (27.0-31.0); MEAN CORPUSCULAR VOLUME 85.4 FL (78-98); MEAN PLATELET VOLUME 8.3 FL (7.4-10.4); MONOCYTES # (AUTO) 0.6 X10'3 (0-0.9); MONOCYTES % (AUTO) 8.9 % (2-12); NEUTROPHILS % (AUTO) 73.1 % (42-75); PLATELET COUNT 206 X10'3 (140-440); RED BLOOD COUNT 3.09 X10'6 (4.20-5.60); RED CELL DISTRIBUTION WIDTH 23.3 % (11.5-14.5); WHITE BLOOD COUNT 6.3 X10'3 (4.5-11.0)
[2022-12-16] MEDS ORDERED: folic acid 1mg tablet PO SCH (08:00)
[2022-12-16 08:20] LABS: ALANINE AMINOTRANSFERASE 18 U/L (12-78); ALBUMIN 1.7 G/DL (3.4-5.0); ALBUMIN/GLOBULIN RATIO 0.5 (1.1-1.5); ALKALINE PHOSPHATASE 143 IU/L (46-116); ANION GAP 6 (8-16); ASPARTATE AMINO TRANSFERASE 37 U/L (10-37); BILIRUBIN,TOTAL 1.8 MG/DL (0.1-1.0); CALCIUM 7.8 MG/DL (8.5-10.1); CHLORIDE 103 MMOL/L (99-107); CREATININE 0.69 MG/DL (0.40-0.90); GLUCOSE 143 MG/DL (70-104); POTASSIUM 3.1 MMOL/L (3.5-5.1); SODIUM 136 MMOL/L (135-145); TOTAL CARBON DIOXIDE 26.8 MMOL/L (24-32); TOTAL PROTEIN 5.1 G/DL (6.4-8.2); eCRCL 107 ML/MIN; eGFR 89 ML/MIN
[2022-12-16] MEDS: FERROUS SULFATE 142 MG TABLET.ER (45mg elemental) PO SCH (08:31)
[2022-12-16 08:32] LABS: BLOOD UREA NITROGEN 0 MG/DL (7-18)
[2022-12-16] MEDS: thiamine 100mg tablet PO SCH (08:32)
[2022-12-16] MEDS: potassium Cl 20 mEq SR tablet PO PRN ×2 (09:09→13:21)
[2022-12-16] MEDS: normal saline 1000ml 1,000 ML IV SCH (09:18)
[2022-12-16 11:00] VITALS: BP 94/57; PULSE 92; RESP 16; TEMP 98.4; O2SAT 96
--- NOTE | 2022-12-16 11:13 | NUR ---
Reassessment: Patient's diet was advanced to clear liquids then full liquids and pt eating well, documented with average 72% PO intake of liquid meals. Diet was advanced to regular starting breakfast today and pt continues eating well, documented with 100% PO intake of first solid meal. LBM 12/16 with two BMs 12/15 per I&O. No nutrition intervention implemented at this time. Will continue to follow and make recommendations as appropriate pending trends in PO intake. Recommendations: 1) Change to low fiber diet given recent GI surgery 2) Monitor need for ONS/additional protein 3) Continue routine Thiamine, Folic acid, and Fe; initiate routine MVM, Vitamin B12, and Calcium d/t h/o EtOH and gastric bypass; MVI shortage per clinical pharmacist 4) Bowel care per surgeon 5) Weekly scaled weights Addendum: 12/16/22 at [address] Amended: Links added.
[2022-12-16 15:10] VITALS: PULSE 79; RESP 17; O2SAT 98
--- NOTE | 2022-12-16 16:13 | NUR ---
Changed patient's dressing per order. Dr Angela came and saw patient. removed bandage and gave orders to keep bandage off and will be discharging patient.
[2022-12-16] MEDS ORDERED: FERR142T13 PO (16:17)
[2022-12-16] MEDS ORDERED: POTA-197 PO (16:17)
[2022-12-16] MEDS ORDERED: HYDR-3972 PO (16:17)
--- NOTE | 2022-12-16 17:10 | NUR ---
Patient discharged home with all belongings and discharge instructions. IV removed tele monitor removed and returned to telegraph inspector. Escorted out via wheel chair and left in private vehicle.
--- NOTE | 2022-12-16 17:45 | NUR ---
JAYME Medication Administration: For this medication-pass time frame, all medication were reviewed, dispensed, administered and documented per hospital policy by JAYME KNUTSON.
--- NOTE | 2022-12-16 17:45 | NUR ---
CYBER ANALYST documentation: I have reviewed and agree with all interventions, assessments performed and documented by JAYME KNUTSON.
== END 2022-12-16 17:21 | disposition home or self-care (01) | DRG 330 ==
LOC: ER 20:46 → ED HOLD 12-08 01:01 → ORTHO 4S 12-08 17:04 → ICU 2S 12-10 21:20 → PCU 3S 12-13 16:51
PROVIDERS: ADMIT Internal Medicine; ATTEND Surgery
PROC: 30233N1 Transfusion of Nonautologous Red Blood Cells into Peripheral Vein, Percutaneous Approach (ICD-10-PCS; 2022-12-07)
PROC: 0FT40ZZ Resection of Gallbladder, Open Approach (ICD-10-PCS; 2022-12-10)
PROC: 0DJW0ZZ Inspection of Peritoneum, Open Approach (ICD-10-PCS; 2022-12-10)
PROC: 0WQF0ZZ Repair Abdominal Wall, Open Approach (ICD-10-PCS; 2022-12-10)
PROC: 0DTF0ZZ Resection of Right Large Intestine, Open Approach (ICD-10-PCS; principal; 2022-12-10 17:28)
DX: K42.9 Umbilical hernia without obstruction or gangrene (principal); E87.1 Hypo-osmolality and hyponatremia; K55.1 Chronic vascular disorders of intestine; K80.00 Calculus of gallbladder with acute cholecystitis without obstruction; N30.00 Acute cystitis without hematuria; K55.9 Vascular disorder of intestine, unspecified; D50.9 Iron deficiency anemia, unspecified; E87.6 Hypokalemia; K43.2 Incisional hernia without obstruction or gangrene; K80.20 Calculus of gallbladder without cholecystitis without obstruction; Z95.1 Presence of aortocoronary bypass graft; F10.10 Alcohol abuse, uncomplicated; K76.0 Fatty (change of) liver, not elsewhere classified; Z98.84 Bariatric surgery status; Z98.891 History of uterine scar from previous surgery; Z79.899 Other long term (current) drug therapy
CPT/HCPCS: 99281; Z7506; Z7508; 36415; 36430; 36600; 71045; 74177; 74181; 76700; 78226; 80053; 80320; 81001; 81025; 82272; 82803; 82948; 83540; 83550; 83605; 83690; 83735; 84145; 84478; 84484; 85008; 85018; 85025; 85027; 85045; 85610; 85651; 85730; 86885; 86900; 86901; 86920; 87040; 87070; 87075; 87077; 87081; 87088; 87186; 93005; 94002; 94003; 94640; 94760; 97116; 97161; 97530; A4215; A4314; A4615; A4618; A5200; A6213; A6253; A6258; A6266; A6402; A6449; A9537; A9900; C1758; C9113; G0378; J0131; J0690; J0696; J1100; J1170; J1200; J1644; J2060; J2250; J2270; J2405; J2543; J2704; J3010; J3411; J3480; J3490; J7030; J7040; J7050; J7120; P9016; P9045; Q9967

== ENCOUNTER 2022-12-29 13:46 | Emergency (ER) | payer BC ==
[~2022-12-29] VITALS: Ht 180.3 cm; Wt 134.0 kg
[~2022-12-29 13:46] MED LIST: ACET-864 PO; FERR142T13 PO; HYDR-3972 PO; IBUP1TAB11 PO; POTA-197 PO; [UNRECOGNIZED DRUG - REMARK] PO
[2022-12-29 14:10] VITALS: TEMP 97.9
[2022-12-29] MEDS ORDERED: silver nitrate applicator stick TP ONE ×2 (14:40→17:00)
[2022-12-29 14:43] LABS: BASOPHILS # (AUTO) 0.1 X10'3 (0-0.2); EOSINOPHILS # (AUTO) 0.1 X10'3 (0-0.9); HEMOGLOBIN 9.1 g/dl (12.0-16.0); MEAN CORPUSCULAR HEMOGLOBIN 25.8 PG (27.0-31.0); MEAN PLATELET VOLUME 7.8 FL (7.4-10.4); MONOCYTES # (AUTO) 0.6 X10'3 (0-0.9)
[2022-12-29 14:45] LABS: BASOPHILS % (AUTO) 0.9 % (0-1); EOSINOPHILS % (AUTO) 1.4 % (0-6); LYMPHOCYTES % (AUTO) 13.9 % (21-51); MEAN CORPUSCULAR HGB CONC 30.4 g/dL (33.0-36.5); MONOCYTES % (AUTO) 7.8 % (2-12); NEUTROPHILS # (AUTO) 5.7 X10'3 (1.8-7.7); PLATELET COUNT 331 X10'3 (140-440); RED BLOOD COUNT 3.52 X10'6 (4.20-5.60); RED CELL DISTRIBUTION WIDTH 20.9 % (11.5-14.5); WHITE BLOOD COUNT 7.4 X10'3 (4.5-11.0)
[2022-12-29 14:48] LABS: APTT 30 SECONDS (22-32); INR 1.2 INR; PROTHROMBIN TIME 12.7 SECONDS (9.0-12.0)
[2022-12-29 14:51] LABS: ALANINE AMINOTRANSFERASE 9 U/L (12-78); ALBUMIN 1.8 G/DL (3.4-5.0); ALBUMIN/GLOBULIN RATIO 0.5 (1.1-1.5); ALKALINE PHOSPHATASE 236 IU/L (46-116); ANION GAP 9 (8-16); ASPARTATE AMINO TRANSFERASE 68 U/L (10-37); BILIRUBIN,TOTAL 1.3 MG/DL (0.1-1.0); BLOOD UREA NITROGEN 1 MG/DL (7-18); BUN/CREATININE RATIO 1.4 (10.0-20.0); CALCIUM 8.1 MG/DL (8.5-10.1); CHLORIDE 103 MMOL/L (99-107); CREATININE 0.74 MG/DL (0.40-0.90); GLUCOSE 117 MG/DL (70-104); SODIUM 137 MMOL/L (135-145); TOTAL CARBON DIOXIDE 25.3 MMOL/L (24-32); TOTAL PROTEIN 5.8 G/DL (6.4-8.2); eCRCL 99 ML/MIN; eGFR 82 ML/MIN
[2022-12-29 15:15] LABS: ANISOCYTOSIS 3+; PLATELET ESTIMATE NORMAL; STOMATOCYTES 1+
--- NOTE | 2022-12-29 16:28 | NUR ---
Dr. Olsen was notified about the abdominal wound bleeding, pressure dressing with gauze and abd was applied
--- NOTE | 2022-12-29 16:38 | NUR ---
Dr. Olsen notified againa bout bleeding from the wound. he was doing a sterile procedure to another patient when I spoke to him. He said to continue the pressure then he will be there as soon as he is able to
--- NOTE | 2022-12-29 17:04 | NUR ---
Bleeding currently stopped after the silver nitrate and hemostat dressing applied plus pressure dressing
[2022-12-29] MEDS ORDERED: HYDROcodone/acetaminophen 10/325mg tab PO ONE (17:10)
[2022-12-29] MEDS ORDERED: potassium chloride 10mEq ER tablet PO STA (17:11)
[2022-12-30] MEDS ORDERED: potassium chloride 10mEq ER tablet PO SCH (08:00)
== END 2022-12-29 18:05 | disposition home or self-care (01) ==
LOC: ER 13:46
DX: L76.22 Postprocedural hemorrhage of skin and subcutaneous tissue following other procedure (principal)
CPT/HCPCS: 36415; 80053; 85008; 85025; 85610; 85730; 99284